=== PATIENT | male | born 1930 | race Caucasian/White ===

== ENCOUNTER → 2017-01-02 | Outpatient (CLI) | payer MEDICARE ==
[~2017-01-02] VITALS: Ht 177.8 cm; Wt 90.9 kg
[~2017-01-02] MED LIST: FLOMAX 0.40.4 MG/CAP PO; HYDROCORTISO28.35 G1 TP; LAMISIL250 MG PO; LIPITOR 10MG10 MG PO; PLAVIX 75MG TAB75 MG PO; TYLENOL 325MG325 MG PO; ZESTRIL2.5 MG PO
[2017-01-02 09:51] VITALS: BP 146/83; PULSE 88
[2017-01-02 11:37] VITALS: BP 154/85; PULSE 81
== END ==
LOC: COL.RAD 09:20
DX: M51.27 Other intervertebral disc displacement, lumbosacral region (principal)
CPT/HCPCS: J3301

== ENCOUNTER → 2017-05-07 | Outpatient (CLI) | payer MEDICARE | LOC: COL.PUL 11:37 | DX: J84.10 Pulmonary fibrosis, unspecified (principal) ==

== ENCOUNTER → 2017-08-13 | Outpatient (CLI) | payer MEDICARE | LOC: COL.VAS 09:00 | DX: I08.1 Rheumatic disorders of both mitral and tricuspid valves (principal); G47.10 Hypersomnia, unspecified ==

== ENCOUNTER → 2019-03-10 | Outpatient (CLI) | payer MEDICARE | LOC: COL.VAS 09:22 | DX: R06.02 Shortness of breath (principal) ==

== ENCOUNTER → 2019-08-26 | Outpatient (CLI) | payer MEDICARE | LOC: COL.VAS 15:00 | DX: I27.20 Pulmonary hypertension, unspecified (principal) ==

== ENCOUNTER 2019-11-13 08:10 | Emergency (ER) | payer MEDICARE ==
[~2019-11-13] VITALS: Ht 182.9 cm; Wt 86.4 kg
[2019-11-13 08:12] VITALS: TEMP 97.2
[2019-11-13 16:41] VITALS: BP 140/65; PULSE 85
== END 2019-11-13 12:50 | disposition short-term general hospital (02) ==
LOC: COL.ER 08:10
DX: S12.01XA Stable burst fracture of first cervical vertebra, initial encounter for closed fracture (principal); S12.190A Other displaced fracture of second cervical vertebra, initial encounter for closed fracture; S12.110A Anterior displaced Type II dens fracture, initial encounter for closed fracture; S01.81XA Laceration without foreign body of other part of head, initial encounter; S51.012A Laceration without foreign body of left elbow, initial encounter; I10 Essential (primary) hypertension; R40.2410 Glasgow coma scale score 13-15, unspecified time; Z79.02 Long term (current) use of antithrombotics/antiplatelets; W10.9XXA Fall (on) (from) unspecified stairs and steps, initial encounter; Y92.009 Unspecified place in unspecified non-institutional (private) residence as the place of occurrence of the external cause
CPT/HCPCS: J3010

== ENCOUNTER → 2020-01-05 | Outpatient (CLI) | payer MEDICARE | LOC: COL.RAD | DX: S12.091 Other nondisplaced fracture of first cervical vertebra (principal); S12.100S Unspecified displaced fracture of second cervical vertebra, sequela; M47.812 Spondylosis without myelopathy or radiculopathy, cervical region; Z98.1 Arthrodesis status ==

== ENCOUNTER → 2020-02-01 | Outpatient (CLI) | payer MEDICARE | LOC: COL.RAD | DX: S12.100S Unspecified displaced fracture of second cervical vertebra, sequela (principal); S12.091 Other nondisplaced fracture of first cervical vertebra; W10.8XXS Fall (on) (from) other stairs and steps, sequela; S00.0 Superficial injury of scalp; Z98.1 Arthrodesis status ==

== ENCOUNTER → 2020-04-04 | Outpatient (CLI) | payer MEDICARE | LOC: COL.RAD 11:55 | DX: S12.100S Unspecified displaced fracture of second cervical vertebra, sequela (principal); M50.30 Other cervical disc degeneration, unspecified cervical region; Z98.890 Other specified postprocedural states ==